=== PATIENT | male | born 1980 | race Caucasian/White ===

== ENCOUNTER → 2017-07-02 10:59 | Outpatient (CLI) | payer OTHER, SELFPAY ==
--- NOTE | 2017-07-02 11:30 | MRI_ITS ---
MR Spine Lumbar W/O Contrast INDICATION: lbp, lateral left leg pain x 4 years COMPARISON: None TECHNIQUE: Multiplanar multisequence MRI examination of the lumbar spine without contrast FINDINGS: 5 lumbar-type [id number] vertebral bodies are assumed for counting purposes. There is normal lumbar lordosis and no significant scoliosis. Height of the vertebral bodies is preserved. Bone marrow signal is mildly heterogenous with endplate degenerative changes at L4-5. No evidence of bone marrow edema or lesion. The conus is located at the T12 level and is morphologically unremarkable. There is normal distribution of the nerve roots of the cauda equina. T12-L1 level is unremarkable. L1-L2 level is unremarkable. L2-3 level demonstrates mild facet arthritic changes and disc dehydration, no evidence of significant disc bulging, spinal canal or neuroforaminal stenosis. L3-4 level demonstrates loss of T2 signal and intervertebral disc compatible with dehydration/degeneration. The disc is diffusely bulging and there is a focal posterior disc protrusion as well as bilateral facet joint arthropathy/hypertrophy. Combination of the findings result in minimal spinal canal and bilateral neuroforaminal narrowing. L4-5 level demonstrates diffuse decrease in disc height with left predominant endplate degenerative changes. There is diffuse disc bulging and a superimposed midline posterior disc protrusion. Disc osteophytes is seen extending into the inferior portions of the neuroforamina bilaterally. Bilateral facet joint arthropathy/hypertrophy is noted. Combination of the findings result in mild spinal canal and bilateral neuroforaminal narrowing. L5-S1 level demonstrates bilateral facet joint arthropathy and minimal posterior disc bulging without significant spinal canal or neuroforaminal stenosis. MRI/Spine Lumbar (Routine) IMPRESSION: Lower lumbar degenerative disc disease and facet arthritic changes as detailed above. No evidence of severe spinal canal or neuroforaminal stenosis at any level. at [id number] Reported and signed by: Monika Pozo MD Electronically Signed: Monika Pozo MD at 0:52 EDT Tel , Service support ,
== END ==
DX: M51.36 Other intervertebral disc degeneration, lumbar region (principal)
CPT/HCPCS: 72148